=== PATIENT | male | born 1970 | race Caucasian/White ===

== ENCOUNTER 2018-02-08 18:30 | Emergency (ER) | payer BC ==
[~2018-02-08] VITALS: Ht 182.9 cm; Wt 129.9 kg
[2018-02-08] MEDS ORDERED: PERCOCET 5/31 TABLET PO (19:37)
[2018-02-08 19:58] VITALS: BP 129/86
== END 2018-02-08 19:59 | disposition home or self-care (01) ==
LOC: EME 18:30
DX: T23.252A Burn of second degree of left palm, initial encounter (principal); X16.XXXA Contact with hot heating appliances, radiators and pipes, initial encounter; T31.0 Burns involving less than 10% of body surface; Z87.891 Personal history of nicotine dependence
CPT/HCPCS: 99281; 99284